=== PATIENT | male | born 1970 | race Caucasian/White ===

== ENCOUNTER 2016-02-19 05:41 | Emergency (ER) | payer SELFPAY ==
[~2016-02-19] VITALS: Ht 180.3 cm; Wt 90.9 kg
[~2016-02-19 05:41] MED LIST: ALBU18HF INHALATION; PRED20TA PO
[2016-02-19] MEDS ORDERED: predniSONE 20 MG TAB PO STA (05:44)
[2016-02-19] MEDS ORDERED: ALBUTEROL 0.5% (NEB) 2.5 MG/0.5 ML AMP NEB STA ×2 (05:44→06:12)
[2016-02-19] MEDS ORDERED: IPRATROPIUM (NEB) 0.5 MG/2.5 ML AMP NEB STA ×2 (05:44→06:12)
[2016-02-19 05:51] VITALS: Ht 180.3 cm; Wt 90.9 kg
--- NOTE | 2016-02-19 06:08 | RADRPT ---
PROCEDURE: CHEST - 1 VIEW CLINICAL INDICATION: 45-year-old male with shortness of breath and asthma exacerbation. TECHNIQUE: A single frontal AP semi-erect view of the chest was performed portably. The images we re reviewed on a PACS workstation. COMPARISON: Chest x-ray February 02, 2016. FINDINGS: The cardiomediastinal silhouette is within normal limits without significant interval change. There is no evidence for an infiltrate. There is no evidence for congestive heart failure. There is no e vidence for pneumothorax. The osseous structures are intact. IMPRESSION: No evidence for active cardiopulmonary disease. .Azael Cotto MD, MD Date Time Electronically viewed and signed by .Azael Cotto MD, on 02/19/2016 06:07 .Alexandrea/
[2016-02-19] MEDS ORDERED: ALBU8.5H3 INH (07:23)
[2016-02-19] MEDS ORDERED: PRED20TA PO (07:23)
--- NOTE | 2016-02-19 07:28 | ERA ---
ER Documentation Chief Complaint Date/Time DATE: 02/19/16 TIME: 07:27 Chief Complaint SOB SINCE LAST NIGHT. RAN OUT OF HIS INHALERS HPI Patient states that yesterday he began having increasing wheezing. He states for the last 2-3 days he has been fighting what he describes a "flu." Patient has had increasing congestion and then over the last 24 hours has run out of his inhaler. He became increasingly short of breath and came to the emergency department for evaluation. Patient reports no significant chest pain, fevers, sputum production. ROS All systems reviewed and are negative except as per history of present illness. Medications Home Meds Active Scripts Albuterol Sulfate* (Proair HFA*) 8.5 Gm Hfa.aer.ad, 2 PUFF INH Q4H Y for WHEEZING AND SOB, #1 INHALER Prov:MICHAEL JACOB 02/19/16 Prednisone* (Prednisone*) 20 Mg Tab, 60 MG PO DAILY for 5 Days, TAB Prov:MICHAEL JACOB 02/19/16 Discontinued Scripts Albuterol Sulfate* (Ventolin HFA*) 18 Gm Hfa.aer.ad, 2 PUFF INHALATION Q4H, #1 INHALER Prov:MASON BEARD PA-C 02/02/16 Prednisone* (Prednisone*) 20 Mg Tab, 40 MG PO DAILY for 4 Days, TAB Prov:MASON BEARD PA-C 02/02/16 Allergies Allergies: Coded Allergies: hydromorphone (Verified Allergy, Unknown, 02/19/16) PMhx/Soc History of Surgery: No Anesthesia Reaction: No Hx Neurological Disorder: No Hx Respiratory Disorders: Yes (asthma) Hx Cardiac Disorders: No Hx Psychiatric Problems: No Hx Miscellaneous Medical Probl: No Hx Alcohol Use: No Hx Substance Use: No Hx Tobacco Use: Yes Smoking Status: Current every day smoker FmHx Noncontributory for chief complaint Physical Exam Vitals Vital Signs Date Time Temp Pulse Resp B/P Pulse Ox O2 Delivery O2 Flow Rate FiO2 02/19/16 06:31 97 18 97 21 02/19/16 06:01 99 18 97 21 02/19/16 05:51 98.0 100 24 134/100 97 Physical Exam GENERAL: The patient is well developed and appropriate for usual state of health in no apparent distress HEENT: Pupils equal, round, and reactive to light. EOMI. There is no scleral icterus. NECK: C-spine is soft and supple, there is no meningismus. There is no cervical lymphadenopathy. LUNGS: Wheezing bilaterally with decreased tidal volume. No tachypnea, retractions or use of accessory muscles. HEART: Regular rate and rhythm, no murmurs, clicks, rubs or gallops. ABDOMEN: Soft, non-tender, non-distended. There are bowel sounds in all four quadrants. No rebound or guarding. EXTREMITIES: There is no peripheral cyanosis or edema. No focal swelling or erythema. NEURO: The patient moves all four extremities with 5/5 strength. Cranial nerves II - XII are intact. Normal gait. Alert and oriented SKIN: There is no apparent rash or petechiae. HEME/LYMPHATIC: There is no evidence of excessive bruising or lymphedema. PSYCHIATRIC: The patient does not appear anxious or depressed. Results 24 hrs Current Medications Medications (Trade) Dose Ordered Sig/Bam Route PRN Reason Start Time Stop Time Status Last Admin Dose Admin Albuterol (Proventil 0.5% (Neb)) 5 mg ONCE STAT NEB 02/19/16 05:44 02/19/16 05:45 DC 02/19/16 05:59 Ipratropium [place] (Atrovent 0.02% (Neb)) 0.5 mg ONCE STAT NEB 02/19/16 05:44 02/19/16 05:45 DC 02/19/16 06:00 Prednisone (Prednisone) 60 mg ONCE STAT PO 02/19/16 05:44 02/19/16 05:45 DC 02/19/16 05:50 Albuterol (Proventil 0.5% (Neb)) 5 mg ONCE STAT NEB 02/19/16 06:12 02/19/16 06:13 DC 02/19/16 06:29 Ipratropium [place] (Atrovent 0.02% (Neb)) 0.5 mg ONCE STAT NEB 02/19/16 06:12 02/19/16 06:13 DC 02/19/16 06:30 Procedures/MDM Patient was taken to a room, seen and evaluated. Comfort measures were initiated. Diagnostic tests were ordered and reviewed. 3 LEAD RHYTHM STRIP: Normal sinus rhythm without ectopy RADIOLOGY: reviewed with the radiologist REEVALUATION: After breathing treatments, patient's lungs were improved with no further wheezing. MEDICAL DECISION MAKIN-year-old male with a history of underlying asthma presents with what appears to be an asthma attack. Chest x-ray and clinical examination do not seem to show evidence of pneumonia. Patient has no evidence of respiratory distress. After bronchodilator therapy, patient is improved significantly and seems appropriate for outpatient care. Departure Diagnosis: Primary Impression: Asthma attack Condition: Stable Patient Instructions: Asthma, Acute (Adult) Additional Instructions: See your doctor for follow-up as discussed. Take a copy of your test results, if appropriate, to this follow-up visit. See your doctor or return here if your symptoms do not improve as expected. At any time, please return to the emergency department for any change or worsening in her symptoms. MICHAEL JACOB Feb 19, 2016 07:28
== END 2016-02-19 08:01 | disposition home or self-care (01) ==
LOC: E/R 05:41
DX: J45.909 Unspecified asthma, uncomplicated (principal); F17.210 Nicotine dependence, cigarettes, uncomplicated
CPT/HCPCS: 71010; 94640; 94664; 99284; J7512